=== PATIENT | male | born 1965 | race Caucasian/White ===

== ENCOUNTER → 2020-09-11 | Outpatient (CLI) | payer OTHER ==
[~2020-09-11] MED LIST: RT-ALBUTEROL SULF 2.5 MG/3 ML PRE-MIX VIAL INH ONE
== END ==
LOC: RT 15:01
PROVIDERS: ATTEND Nurse Practitioner Family
DX: J45.40 Moderate persistent asthma, uncomplicated (principal)
CPT/HCPCS: 94060; 94726; 94729

== ENCOUNTER → 2023-03-03 | Outpatient (CLI) | payer OTHER ==
[~2023-03-03] MED LIST changes: +BARIUM for suspension 96% w/w (Vanilla Silq Medium Density) PO ONE; +BARIUM for suspension 98% w/w (Vanilla Silq High Density) PO ONE; -RT-ALBUTEROL SULF 2.5 MG/3 ML PRE-MIX VIAL INH ONE
--- NOTE | 2023-03-03 15:58 | Diagnostic Imaging Report ---
INDICATION: Dysphagia. The patient ingested effervescent crystals as well as thin and thick barium and imaging of the esophagus was performed in multiple obliquities. 65 seconds of fluoroscopic time was utilized. Reference air kerma was 34.3 mGy. 34 images were obtained. Preliminary radiograph of the chest is unremarkable. Esophagus has a smooth contour. No mass or stricture is identified. No hiatal hernia or gastroesophageal reflux was demonstrated. Stomach is unremarkable. IMPRESSION: Unremarkable esophagram. Dictated by: Dictated on workstation # [id number]
== END ==
LOC: RAD 14:39
PROVIDERS: ATTEND Pediatrics
DX: R13.19 Other dysphagia (principal)
CPT/HCPCS: 74220